=== PATIENT | female | born 1935 | race Caucasian/White ===

== ENCOUNTER 2021-01-14 12:05 | Emergency (ER) | payer MEDICARE, OTHER ==
[~2021-01-14] VITALS: Ht 152.4 cm; Wt 44.5 kg
[2021-01-14] MEDS ORDERED: MORPHINE 2 MG/ML 1ML VIAL (J2270) IV ONE (13:55)
[2021-01-14 14:22] LABS: BASO % 0.6 % (0.0-1.0); EOS # 0.3 10^3/uL (0.0-0.5); EOS % 3.4 % (0.0-3.0); HEMATOCRIT 41.9 % (36.0-47.0); HEMOGLOBIN 13.6 g/dl (12.0-15.5); LYMPH # 2.8 10^3/uL (1.5-5.0); LYMPH % 37.9 % (24.0-44.0); MEAN CORPUSCULAR HEMOGLOBIN 31.7 pg (27.0-33.0); MEAN CORPUSCULAR HGB CONC 32.5 g/dl (32.0-36.5); MEAN CORPUSCULAR VOLUME 97.7 fl (80.0-96.0); MONO # 0.5 10^3/uL (0.0-0.8); MONO % 6.9 % (2.0-8.0); NEUTROPHILS # 3.7 10^3/uL (1.5-8.5); NEUTROPHILS % 50.9 % (36.0-66.0); PLATELET COUNT, AUTOMATED 231 10^3/uL (150-450); RED BLOOD COUNT 4.29 10^6/uL (4.00-5.40); WHITE BLOOD COUNT 7.3 10^3/uL (4.0-10.0)
[2021-01-14] MEDS ORDERED: ISOVUE-370 76% 100ML VIAL As Ordered ONE (14:27)
--- NOTE | 2021-01-14 14:51 | REP ---
INDICATION: fall injury; right sided chest pain. COMPARISON: None. TECHNIQUE: Helical scanning is acquired. 5 mm axial images were reformatted. Coronal MPR images were generated. FINDINGS: Bone window settings demonstrate an intact bony calvarium. There is no evidence of skull fracture or incidental bony calvarial lesion. The visualized paranasal sinuses appear clear. No intraorbital abnormality is seen. On soft tissue window setting images; the lateral, third, and fourth ventricles are normal in size and position. Booth-white differentiation pattern is normal above and below the tentorium. There are is no evidence of intracranial hemorrhage. No mass, edema, infarction, or midline shift is seen. No extra-axial fluid collection is appreciated. The patient is edentulous. Some vascular calcification is seen at the skull base. There is moderate generalized volume loss. Mild small vessel changes are seen. IMPRESSION: Volume loss and small vessel changes. Some vascular calcification. No acute intracranial abnormality.. <Electronically signed by Stu Porter > 01/14/21 [id number]
--- NOTE | 2021-01-14 14:55 | REP ---
INDICATION: fall injury; right sided chest pain. COMPARISON: None. TECHNIQUE: 2 mm increments using standard helical technique and reconstructed in both sagittal and coronal planes. FINDINGS: Vertebral body height and alignment is within normal limits. The facet joints are well aligned bilaterally. There is disc space narrowing at every level particularly C4-5 were anterior and posterior osteophytic ridging is the heaviest. There is no acute fracture or subluxation. Degenerative facet and uncovertebral joint changes are present at every level bilaterally. There is no abnormal paraspinal soft tissue swelling. The bones are demineralized. IMPRESSION: Chronic changes as described above. <Electronically signed by Gabriel Sharma > 01/14/21 [id number]
--- NOTE | 2021-01-14 15:03 | REP ---
INDICATION: fall injury; ?head injury/confused. COMPARISON: None. TECHNIQUE: CT chest performed following the intravenous administration of 100 cc of Isovue 370. Sagittal and coronal reconstruction images are performed. FINDINGS: Lungs: There are mild bibasilar fibro atelectatic changes. Mediastinum: No adenopathy. Natalia: No adenopathy. Axilla: No adenopathy. Pleura: No effusion. Heart: Not enlarged. Thoracic aorta: No aneurysm or dissection. Upper abdominal structures: There is a small hiatal hernia. There has been a prior cholecystectomy. There is nonspecific 7 mm nodule in the lateral segment of the left lobe of the liver. Visualized osseous structures: There is an old left 1st rib fracture. There is nondisplaced fracture of the anterior right 4th rib and 5th rib, which may be old or acute. There is mild anterior loss of height of the T 7 vertebral body, moderate loss of height of T9, and a mild loss of height of T10, all likely chronic in nature. There is evidence of prior kyphoplasty of L1 compression deformity. IMPRESSION: Mild bibasilar fibro atelectatic changes. Thoracic aorta intact with no aneurysm or dissection. Nondisplaced fractures anterior right 4th and 5th ribs could be old or acute. Compression deformities of T7, T9 and T10 are probably old. Recommend clinical correlation. <Electronically signed by Bob Booth > 01/14/21 [id number]
[2021-01-14] MEDS ORDERED: NORCO, ANEXSIA 5/325MG TABLET (HYDROcodone/ACETAMINOPHEN) PO ONE (15:10)
[2021-01-14] MEDS ORDERED: HYDR-3713 PO (15:39)
[2021-01-14 16:00] VITALS: BP 182/71
== END 2021-01-14 16:18 | disposition home or self-care (01) ==
LOC: M ED 12:05
DX: S22.41XA Multiple fractures of ribs, right side, initial encounter for closed fracture (principal); S20.219A Contusion of unspecified front wall of thorax, initial encounter; W18.39XA Other fall on same level, initial encounter; Y92.89 Other specified places as the place of occurrence of the external cause; I10 Essential (primary) hypertension
CPT/HCPCS: 36415; 70450; 71260; 72125; 80047; 85025; 96374; 99284; J2270; Q9967